=== PATIENT | male | born 1980 | race Two or more races ===

== ENCOUNTER → 2024-12-10 | Outpatient (CLI) | payer MEDICAID, SELFPAY ==
--- NOTE | 2024-12-10 10:15 | XR_ITS ---
Examination: MRI lumbar spine, without intravenous contrast. MRI lumbar spine , with intravenous contrast. 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 Images obtained included T2 weighted fat suppressed sagittal sections, TR 3500, TE 46, T2 weighted coronal fat suppressed images, TR 3050, TE 84, T2-weighted transverse fat suppressed images, TR 30-60, TE 63, proton density transverse images, TR 4720, TE 46, and T1 weighted coronal images, TR 560, TE 13. Axial, sagittal and coronal images are obtained post intravenous injection 20 cc gadolinium. Findings: Adequate alignment lumbar vertebral bodies No abnormal osseous enhancement Stable enhancing extra medullary intradural tumor at the L1-L2 level measuring 33 x 16 mm Stable enhancing extra medullary intradural tumor tumor at the L4 level measuring 8 x 8 mm No new abnormal enhancing tumors IMPRESSION: Stable enhancing extra medullary intradural tumors at the L1-L2 and L4 levels compared with October 26, 2023
== END | disposition home or self-care (01) ==
DX: C72.0 Malignant neoplasm of spinal cord (principal)
CPT/HCPCS: 72158; A9579